=== PATIENT | female | born 1965 | race Caucasian/White ===

== ENCOUNTER 2016-03-14 19:37 | Emergency (ER) | payer OTHER ==
[~2016-03-14] VITALS: Ht 162.6 cm; Wt 70.3 kg
[~2016-03-14 19:37] MED LIST: BIOT5000 PO; IBUP-232 PO; LANTINJ SQ; METF-324 PO; MULT-65 PO
[2016-03-14 19:48] VITALS: BP 107/63; PULSE 78; RESP 20; TEMP 98.4; O2SAT 96
[2016-03-14] MEDS ORDERED: METF500T PO (19:55)
[2016-03-14] MEDS ORDERED: LANTUS2P SQ (19:55)
[2016-03-14] MEDS ORDERED: methylPREDNISolone SOD SUCC 125 MG/2 ML VIAL IM ONE (20:00)
--- NOTE | 2016-03-14 20:00 | PD ---
HPI Chief Complaint: Respiratory Symptoms Time Seen by Provider: 19:57 Travel History International Travel<30 days: No Contact w/Intl Traveler<30days: No Traveled to known affect area: No History of Present Illness HPI Patient is a 50-year-old female who presents emergency for evaluation of chest congestion, cough, fatigue, shortness of breath. She states she was been sick for approximately one week however her symptoms initially began to improve but started getting worse over the last 2 days. Patient took DayQuil this morning but has not taken any ibuprofen or acetaminophen today. Patient denies any nausea, vomiting, abdominal pain, back pain. Patient denies any history of cardiopulmonary disease. PFSH Past Medical History Diabetes: Yes Diminished Hearing: No Immunizations Current: Yes Menopausal: Yes : 3 Para: 2 : 1 Past Surgical History Section: Yes (X1) Social History Alcohol Use: No Tobacco Use: No (2010) Substance Use: No Allergies-Medications (Allergen,Severity, Reaction): Coded Allergies: No Known Allergies (Unverified , 03/14/16) Reported Meds & Prescriptions Reported Meds & Active Scripts Active Hydrocodone-Homatropine Liq 5-1.5 Mg/5 Ml Syrp 5 Ml PO Q6H PRN Prednisone 20 Mg Tab 20 Mg PO BID 3 Days Ventolin Hfa 18 GM Inh (Albuterol Sulfate) 90 Mcg/Act Aer 2 Puff INH Q4H PRN Levaquin (Levofloxacin) 750 Mg Tab 750 Mg PO DAILY Reported Lantus Inj (Insulin Glargine) 1,000 Unit/10 Ml Vial 12-18 Units SQ HS Metformin (Metformin HCl) 500 Mg Tab 500 Mg PO BIDPC With meals Review of Systems Except as stated in HPI: all other systems reviewed are Neg General / Constitutional: Positive: Other (fatigue), No: Fever, Chills HENT: No: Headaches Cardiovascular: Positive: Dyspnea on exertion, No: Chest Pain or Discomfort Respiratory: Positive: Cough, Shortness of Breath, Wheezing Gastrointestinal: No: Nausea, Vomiting, Diarrhea, Abdominal Pain Genitourinary: No: Dysuria Musculoskeletal: No: Myalgias Physical Exam Narrative GENERAL: Well: Well-nourished, alert female. Resting comfortably in no acute distress. SKIN: Warm and dry. HEAD: Atraumatic. Normocephalic. EYES: Pupils equal and round. No scleral icterus. No injection or drainage. ENT: No nasal bleeding or discharge. Mucous membranes pink and moist. NECK: Trachea midline. No JVD. CARDIOVASCULAR: Regular rate and rhythm. No murmur appreciated. RESPIRATORY: No accessory muscle use. Expiratory wheezes noted in the lower left lung, no increased work of breathing, no nasal flaring, no retractions noted. GASTROINTESTINAL: Abdomen soft, non-tender, nondistended. Hepatic and splenic margins not palpable. MUSCULOSKELETAL: No obvious deformities. No clubbing. No cyanosis. No edema. NEUROLOGICAL: Awake and alert. No obvious cranial nerve deficits. Motor grossly within normal limits. Normal speech. PSYCHIATRIC: Appropriate mood and affect; insight and judgment normal. Data Data Last Documented VS Vital Signs Date Time Temp Pulse Resp B/P Pulse Ox O2 Delivery O2 Flow Rate FiO2 03/14/16 19:55 20 96 Room Air 03/14/16 19:48 98.4 78 107/63 Orders Chest, Pa & Lat (03/14/16 19:56) Methylprednisolone So Succ Inj (Solumedr (03/14/16 20:00) Albuterol-Ipratropium Neb (Duoneb Neb) (03/14/16 20:00) Levofloxacin (Levaquin) (03/14/16 22:00) MDM Medical Decision Making Medical Screen Exam Complete: Yes Emergency Medical Condition: Yes Interpretation(s) Vital Signs Date Time Temp Pulse Resp B/P Pulse Ox O2 Delivery O2 Flow Rate FiO2 03/14/16 19:55 20 96 Room Air 03/14/16 19:48 98.4 78 20 107/63 96 Differential Diagnosis Bronchitis versus pneumonia versus viral URI versus other Narrative Course Patient is a 50-year-old female who presents emergency evaluation of 1 week of chest congestion, coughing. Her symptoms initially improved but over the last few days and got worse. Patient is audible wheezing on exam worse on the left lower base. Chest x-ray ordered, DuoNeb ordered, Solu-Medrol IM ordered. Chest x-ray shows no acute disease. Patient reports improvement with DuoNeb. Patient's vital signs are stable, she is afebrile and she is well oxygenated on room air. Oxygen saturation was reassessed at 98%. At this time patient will be discharged home with antibiotics as well as albuterol inhaler and a short course of oral steroids. Patient was advised that steroids can elevate her blood glucose levels. Patient appears to have a very good working knowledge of her blood sugars and manages her Lantus administration well. She was encouraged to return to emergency department for any new or worsening symptoms, she should follow-up with her primary care provider as well. Patient was advised to return to return immediately if she started to feel worse despite being on antibiotic therapy. Patient was advised not to drive or operate heavy machinery while taking cough medicine as it contains codeine and may alter her ability to drive. She verbalized understanding of these instructions. Patient is stable for discharge. Diagnosis Primary Impression: Acute bronchitis Qualified Code: J20.9 - Acute bronchitis, unspecified organism Referrals: Primary Care Physician Patient Instructions: Acute Bronchitis (ED), General Instructions Additional Instructions: Follow-up with her primary doctor Medications as directed Return to emergency department for any new or worsening symptoms Monitor blood sugar closely, steroids can elevate your blood sugars Med/Other Pt SpecificInfo: Prescription(s) given Scripts Hydrocodone-Homatropine Liq 5-1.5 Mg/5 Ml Syrp5 Ml PO Q6H PRN (COUGH) #100 ML Ref 0 Prov:Gustavo Whalen MD 03/14/16 Prednisone 20 Mg Tab20 Mg PO BID 3 Days Ref 0 Prov:Angela Hood 03/14/16 Albuterol 18 GM Inh (Ventolin Hfa 18 GM Inh)90 Mcg/Act Aer2 Puff INH Q4H PRN ( SHORTNESS OF BREATH) #1 INHALER Ref 0 Prov:Angela Hood 03/14/16 Levofloxacin (Levaquin)750 Mg [id number] Mg PO DAILY #4 TAB Ref 0 Prov:Angela Hood 03/14/16 Disposition: 01 DISCHARGE HOME Condition: Stable Angela Hood Mar 14, 2016 20:00
[2016-03-14] MEDS: RESP: ALBUTEROL 2.5 MG/IPRATROPIUM 0.5 MG NEB (SCH) INH ×2 (20:08→20:16)
--- NOTE | 2016-03-14 21:36 | RADHPO ---
EXAM DATE/TIME: 03/14/2016 20:11 [facility] COMPARISON: No previous studies available for comparison. INDICATIONS : Patient has been congested since yesterday. MEDICAL HISTORY : None. SURGICAL HISTORY : None. ENCOUNTER: Initial ACUITY: 1 day PAIN SCORE: 0/10 LOCATION: Bilateral chest FINDINGS: PA and lateral views of the chest demonstrate the lungs to be symmetrically aerated without evidence of mass, infiltrate or effusion. The cardiomediastinal contours are unremarkable. Osseous structure s are intact. CONCLUSION: No acute disease. Alexis Cleveland MD on March 14, 2016 at 21:15 Board Certified Radiologist. This report was verified electronically.
[2016-03-14] MEDS ORDERED: VENTAER INH (21:47)
[2016-03-14] MEDS ORDERED: PRED20 PO (21:47)
[2016-03-14] MEDS ORDERED: LEVA750T PO (21:47)
[2016-03-14] MEDS ORDERED: HYDR5SYP10 PO (21:51)
[2016-03-14] MEDS ORDERED: LEVOFLOXACIN 750 MG TAB PO ONE (22:00)
[2016-04-08] MEDS ORDERED: BENZ100 PO (10:48)
[2016-04-08] MEDS ORDERED: VENTAER INH (10:48)
[2016-04-17] MEDS ORDERED: PRED50 PO (09:38)
[2016-04-17] MEDS ORDERED: ONETTES4 ×2 (09:43→09:44)
[2016-05-05] MEDS ORDERED: ONETTES4 (13:17)
[2016-05-16] MEDS ORDERED: ONETTES4 (10:36)
[2016-06-19] MEDS ORDERED: INSU1INJ18 SQ (09:39)
[2016-06-24] MEDS ORDERED: MOME0.1O20 TOPICAL (11:29)
[2016-07-04] MEDS ORDERED: MOME0.1O20 TOPICAL (12:24)
== END 2016-03-14 22:10 | disposition home or self-care (01) ==
LOC: PHEFT 19:37
DX: J20.9 Acute bronchitis, unspecified (principal); R05 Cough; R53.83 Other fatigue; E11.9 Type 2 diabetes mellitus without complications
CPT/HCPCS: 71020; 94640; 94664; 96372; 99283; J2930